=== PATIENT | male | born 1985 | race Caucasian/White ===

== ENCOUNTER 2018-10-03 07:21 | Emergency (ER) | payer SELFPAY ==
[~2018-10-03] VITALS: Ht 190.5 cm; Wt 113.6 kg
[2018-10-03 07:40] VITALS: BP 145/90; PULSE 71; TEMP 98
[2018-10-03] MEDS ORDERED: NAPROSYN 2250 MG/TAB PO (07:42)
== END 2018-10-03 08:39 | disposition home or self-care (01) ==
LOC: COL.ER 07:21
DX: K40.90 Unilateral inguinal hernia, without obstruction or gangrene, not specified as recurrent (principal); K58.9 Irritable bowel syndrome, unspecified

== ENCOUNTER 2018-10-06 05:37 | Day surgery (SDC) | payer SELFPAY ==
[~2018-10-06] VITALS: Ht 182.9 cm; Wt 111.5 kg
[~2018-10-06 05:37] MED LIST: NAPROSYN 2250 MG/TAB PO
[2018-10-06 05:57] VITALS: BP 129/97; PULSE 68; TEMP 97.7
--- NOTE | 2018-10-06 06:28 | NUR ---
The nurse completed the patient's suicide risk assessment with him answering yes to Question 1. He states that he has "no plans beyond ideation". He is not currently seeing a therapist but "knows what group" he would use if he felt that he needed to see someone. He also states that he has "tried meds in the past but they don't work". Encouraged the patient to seek help if the thoughts continue or to just have someone to talk to. Will continue to monitor the patient.
[2018-10-06] MEDS ORDERED: PERCOCET 325 MG1 TA2 PO (08:31)
[2018-10-06 08:32] VITALS: BP 112/70; PULSE 66; TEMP 97.3
--- NOTE | 2018-10-06 08:32 | NUR ---
The patient arrived back to [facility] from the operating room at this time. The patient appears alert and oriented and denies any pain or nausea at this time. The patient's incision to his right groin appears clean, dry, and intact. Post operative vital signs were started at this time. The patient agrees to try some toast and orange juice at this time. The patient's was brought back to be at his bedside. Call light is within reach. The patient denies any further needs at this time. Will continue to monitor the patient.
[2018-10-06 08:47] VITALS: BP 126/73; PULSE 59
--- NOTE | 2018-10-06 08:47 | NUR ---
The patient has finished his juice and requests more at this time. The patient's vital signs appear stable at this time. The patient is eating his toast and appears to be tolerating it well. Will continue to monitor the patient.
[2018-10-06 09:02] VITALS: BP 121/74; PULSE 63
--- NOTE | 2018-10-06 09:02 | NUR ---
The patient has finished his food and drink and appears to be resting comfortaly on the cart. The patient's remains at his bedside at this time. Call light is within reach. Will continue to monitor the patient.
[2018-10-06 09:17] VITALS: BP 121/65; PULSE 58
--- NOTE | 2018-10-06 09:17 | NUR ---
The patient voices a desire to be discharged home. Vital signs appear stable at this time.
--- NOTE | 2018-10-06 09:25 | NUR ---
Discharge instructions were reviewed with the patient and his at this time. They both verbalized understanding and questions were answered at this time. The patient's IV to his left hand was removed and a pressure dressing was applied to the site. The nurse instructed the patient to get dressed and notify the staff when he is ready to be escorted out.
--- NOTE | 2018-10-06 09:40 | NUR ---
The patient was escorted out via wheelchair to a private vehicle by [facility]. The patient's belongings and discharge paperwork were sent with him. The patient's is present to drive him home.
== END 2018-10-06 09:40 | disposition home or self-care (01) ==
LOC: SDCO 05:37
DX: K40.90 Unilateral inguinal hernia, without obstruction or gangrene, not specified as recurrent (principal); I10 Essential (primary) hypertension; F32.9 Major depressive disorder, single episode, unspecified; K58.9 Irritable bowel syndrome, unspecified; Z80.0 Family history of malignant neoplasm of digestive organs; Z83.3 Family history of diabetes mellitus
CPT/HCPCS: J0690; J2704; J3010; J7120